=== PATIENT | male | born 1990 | race Caucasian/White ===

== ENCOUNTER 2019-08-20 15:27 | Emergency (ER) | payer MEDICAID ==
[~2019-08-20] VITALS: Ht 185.4 cm; Wt 104.5 kg
[~2019-08-20 15:27] MED LIST: CLIN150C8 PO; CYCL-1 PO; DIAZ5TAB PO; HYDR-4353 PO; HYDR-4383 PO; HYDR1TAB PO; IBUP-1051 PO; IBUP-1984 PO; LIDO700A32 TP; METH-360 PO; PROM25SU46 RC
[2019-08-20] MEDS ORDERED: AMOX500C2 PO (16:05)
[2019-08-20] MEDS ORDERED: CHLO473M3 PO (16:05)
[2019-08-20 16:11] VITALS: BP 175/97
== END 2019-08-20 16:37 | disposition home or self-care (01) ==
LOC: ER 15:28
DX: K04.7 Periapical abscess without sinus (principal); K21.9 Gastro-esophageal reflux disease without esophagitis; G89.29 Other chronic pain; M54.9 Dorsalgia, unspecified; F12.90 Cannabis use, unspecified, uncomplicated; F15.90 Other stimulant use, unspecified, uncomplicated; F11.90 Opioid use, unspecified, uncomplicated; F17.210 Nicotine dependence, cigarettes, uncomplicated; Z79.899 Other long term (current) drug therapy
CPT/HCPCS: 99283

== ENCOUNTER 2022-07-26 17:33 | Emergency (ER) | payer BC, MEDICAID ==
[~2022-07-26] VITALS: Ht 182.9 cm; Wt 83.1 kg
[~2022-07-26 17:33] MED LIST changes: +CHLO473M3 PO; -PROM25SU46 RC; +PROM25SU9 RC
[2022-07-26 18:03] VITALS: BP 133/69
[2022-07-26] MEDS ORDERED: LIDOcaine 1% W/epiNEPHrine 1:100,000 20ml vial SQ ONE (18:50)
[2022-07-26] MEDS ORDERED: LIDOCAINE 1%/EPI 1:100,000 inj. 10 ML multi-dose vial SQ ONE (19:10)
[2022-07-26] MEDS ORDERED: bacitracin 15gm ointment TP ONE (19:15)
[2022-07-26] MEDS ORDERED: HYDROcodone/acetaminophen 5mg/325mg tablet PO ONE (19:45)
[2022-07-26] MEDS ORDERED: HYDR-3965 PO (19:49)
== END 2022-07-26 20:05 | disposition home or self-care (01) ==
LOC: ER 17:34
DX: S81.801A Unspecified open wound, right lower leg, initial encounter (principal); M79.604 Pain in right leg; R58 Hemorrhage, not elsewhere classified; K21.9 Gastro-esophageal reflux disease without esophagitis; G89.29 Other chronic pain; F41.9 Anxiety disorder, unspecified; F12.90 Cannabis use, unspecified, uncomplicated; F15.90 Other stimulant use, unspecified, uncomplicated; F11.90 Opioid use, unspecified, uncomplicated; Z86.711 Personal history of pulmonary embolism; Z87.11 Personal history of peptic ulcer disease; Z79.2 Long term (current) use of antibiotics; Z79.899 Other long term (current) drug therapy; W19.XXXA Unspecified fall, initial encounter; Y93.89 Activity, other specified; Y92.89 Other specified places as the place of occurrence of the external cause; Y99.8 Other external cause status
CPT/HCPCS: 73590; 99283; J7030; A6449